=== PATIENT | male | born 1995 | race Two or more races ===

== ENCOUNTER 2019-08-14 11:53 | Emergency (ER) | payer MEDICAID, OTHER ==
[~2019-08-14] VITALS: Ht 180.3 cm; Wt 68.2 kg
--- NOTE | 2019-08-14 12:00 | NUR ---
PT AMBULATED INDEPENDENTLY TO ED ROOM 30 FROM [facility] IN [facility]. PT REPORTS 3/10 STERNAL/MID CHEST PRESSURE X1 WEEK, INTERMITTENT "IT JUST FEELS LIKE PRESSURE ON MY CHEST", NO ASSOCIATED SYMPTOMS, WORSE AT NIGHT TIME. PT DENIES PMH.
--- NOTE | 2019-08-14 12:40 | NUR ---
BEDSIDE REPORT RECEIVED FROM PRECEPTOR, NEIL STEIN. CALL LIGHT ON LAP, DENIES ADDITIONAL NEEDS AT THIS TIME. PT RESTING IN GURNEY, NAD, P/W/D, VSS, FCS NO SOB NOTED, MAEX4. WCTM. WAITING FOR RAD RESULTS.
--- NOTE | 2019-08-14 12:50 | NUR ---
Late entry: Pt resting on gurney, VSS,CALL LIGHT ON LAP, DENIES ADDITIONAL NEEDS AT THIS TIME. PT in NAD, P/W/D, FCS NO SOB NOTED, MAEX4. WCTM.
[2019-08-14 13:21] LABS: TROPONIN I < 0.015 ng/mL (0.000-0.045)
[2019-08-14 13:37] VITALS: BP 125/72
--- NOTE | 2019-08-14 13:48 | NUR ---
Patient/Caregiver given discharge instructions and they have confirmed that they understand the instructions. Patient ambulatory with steady gait. Denies additional questions at this time. NAD, P/W/D, RESP WNL, VSS.
== END 2019-08-14 13:53 | disposition home or self-care (01) ==
LOC: ED 13:45
DX: R07.89 Other chest pain (principal); R94.31 Abnormal electrocardiogram [ECG] [EKG]
CPT/HCPCS: 36415; 71045; 84484; 93005; 99285